=== PATIENT | male | born 1980 | race Caucasian/White ===

== ENCOUNTER 2023-07-15 16:32 | Emergency (ER) | payer MEDICARE, MEDICAID ==
[~2023-07-15] VITALS: Ht 177.8 cm; Wt 80.0 kg
[~2023-07-15 16:32] MED LIST: DIVA-51 PO; FLO0.4C PO; HYDR-3964 PO; LURA20TA8 PO; SULF-14 PO
[2023-07-15 16:48] VITALS: TEMP 98.2
[2023-07-15 18:29] VITALS: BP 119/83; PULSE 97; RESP 16; O2SAT 97
== END 2023-07-15 18:31 | disposition home or self-care (01) ==
LOC: ER 16:33
DX: T19.8XXA Foreign body in other parts of genitourinary tract, initial encounter (principal); Z87.442 Personal history of urinary calculi; Z79.899 Other long term (current) drug therapy
CPT/HCPCS: 99281